=== PATIENT | male | born 1960 | race Caucasian/White ===

== ENCOUNTER → 2017-03-04 | Outpatient (CLI) | payer BC ==
[~2017-03-04] MED LIST: ACET-1256 PO; FLM4 PO; ULT50X PO
--- NOTE | 2017-03-04 09:15 | DIAGNOSTIC IMAGING REPORT ---
KUB HISTORY: Kidney stones. COMPARISON: Abdomen and pelvis CT 02/20/2016. FINDINGS: The bowel gas pattern is unremarkable. There are no dilated loops of small bowel to suggest an obstruction. No renal calculi. No ureteral calculi. No pneumoperitoneum or pneumatosis. IMPRESSION: No renal or ureteral stones. Electronically signed by: Arturo Ascencio M.D. 03/04/2017 9:14 AM Dictated Date/Time: 03/04/2017 9:12 AM
--- NOTE | 2017-03-11 14:04 | CODING QUERY MEDICAL NECESSITY ---
CQSUPPORTING DIAGNOSIS NEEDED A supporting diagnosis is required for the test/procedure performed on this patient in order for us to be reimbursed by the patient's insurance. Please provide a supporting diagnosis for the following test/procedure listed below next to the test name along with your signature. *If there is no additional diagnosis for this patient that would support the following test/procedure please document that below next to the test/procedure. Test(s)/Procedure(s) that require a supporting diagnosis: DOS 03/04/17 PROSTATE SPECIFIC ANTIGEN Provider Signature: Date: Thank you Chio Jimenez [employer] Once completed, please kindly fax back to [phone] For questions please call [phone]
== END | disposition home or self-care (01) ==
LOC: C.LAB 08:41
PROVIDERS: ATTEND Urology
DX: N20.0 Calculus of kidney (principal); N28.1 Cyst of kidney, acquired; N39.0 Urinary tract infection, site not specified; Z12.5 Encounter for screening for malignant neoplasm of prostate